=== PATIENT | female | born 1985 | race Two or more races ===

== ENCOUNTER 2020-03-09 09:27 | Inpatient (IN) | payer OTHER ==
[~2020-03-09] VITALS: Ht 157.5 cm; Wt 96.0 kg
[2020-03-09] MEDS ORDERED: BETAMETHASONE 6 MG/ML, 5ML IM ONE (09:46)
[2020-03-09] MEDS ORDERED: BETAMETHASONE 6 MG/ML, 5ML IM SCH (10:00)
[2020-03-09] MEDS ORDERED: AMPICILLIN 2 GM in SODIUM CHLORIDE 0.9% 100 ML IV ONE (10:00)
[2020-03-09 10:08] LABS: BASOPHILS # (AUTO) 0.01 x10^3/uL (0-0.1); BASOPHILS % (AUTO) 0 % (0-1); EOSINOPHILS # (AUTO) 0.09 x10^3/uL (0-0.4); EOSINOPHILS % (AUTO) 1 % (1-7); LYMPHOCYTES # (AUTO) 2.22 x10^3/uL (1-3.4); LYMPHOCYTES % (AUTO) 20 % (22-44); MD NO; MEAN CORPUSCULAR HEMOGLOBIN 28.1 pg (27.0-34.8); MEAN CORPUSCULAR HGB CONC 32.9 g/dL (32.4-35.8); MEAN CORPUSCULAR VOLUME 85.2 fL (80-100); MEAN PLATELET VOLUME 8.1 fL (7.4-10.4); MONOCYTES # (AUTO) 0.59 x10^3/uL (0.2-0.8); MONOCYTES % (AUTO) 5 % (2-9); NEUTROPHILS # (AUTO) 8.12 x10^3/uL (1.8-6.8); NEUTROPHILS % (AUTO) 74 % (42-75); PLATELET COUNT 320 x10^3/uL (130-400); RED BLOOD COUNT 4.25 x10^6/uL (3.82-5.3); RED CELL DISTRIBUTION WIDTH 13.6 % (9.6-15.2)
[2020-03-09 10:18] LABS: ALANINE AMINOTRANSFERASE 15 U/L (12-78); ANION GAP 8 mmol/L (5-15); CALCIUM 9.5 mg/dL (8.5-10.1); CHLORIDE 110 mmol/L (98-107)
[2020-03-09 10:21] LABS: ALKALINE PHOSPHATASE 70 U/L (45-117); BILIRUBIN,TOTAL 0.5 mg/dL (0.2-1.0); TOTAL PROTEIN 7.3 g/dL (6.4-8.2)
[2020-03-09] MEDS ORDERED: MAGNESIUM SULF. PMX 20GM/500ML 500 ML IV ONE ×2 (12:55→20:14)
[2020-03-09] MEDS: MAGNESIUM SULF. PMX 20GM/500ML 500 ML IV SCH ×2 (12:56→20:19)
[2020-03-09] MEDS ORDERED: MAGNESIUM SULFATE PMX 4GM/100M 100 ML IVPB ONE (13:00)
[2020-03-09] MEDS ORDERED: ONDANSETRON 2MG/ML, 2ML IVPush PRN (13:30)
[2020-03-09] MEDS ORDERED: DOCUSATE 100 MG CAPSULE PO PRN (13:30)
[2020-03-09] MEDS: AMPICILLIN 1 GM in SODIUM CHLORIDE 0.9% 100 ML IV SCH ×3 (14:05→21:06)
[2020-03-09 20:11] VITALS: BP 119/74
[2020-03-10] MEDS: AMPICILLIN 1 GM in SODIUM CHLORIDE 0.9% 100 ML IV SCH ×6 (00:49→21:21)
[2020-03-10] MEDS ORDERED: MAGNESIUM SULF. PMX 20GM/500ML 500 ML IV ONE ×3 (04:34→22:54)
[2020-03-10] MEDS: MAGNESIUM SULF. PMX 20GM/500ML 500 ML IV SCH ×4 (04:36→22:57)
[2020-03-10 09:00] VITALS: BP 122/70
[2020-03-10] MEDS ORDERED: PRENATAL VIT/IRON/FA 1 EACH TABLET ONE (10:26)
[2020-03-10] MEDS ORDERED: DOCUSATE 100 MG CAPSULE ONE ×2 (10:26→21:19)
[2020-03-10] MEDS: PRENATAL VIT/IRON/FA 1 EACH TABLET PO SCH (10:39)
[2020-03-10] MEDS: BETAMETHASONE 6 MG/ML, 5ML IM SCH ×2 (10:39→19:05)
[2020-03-10] MEDS: LACTATED RINGERS 1,000 ML IV PRN (10:47)
[2020-03-10 21:00] VITALS: BP 122/67
[2020-03-10] MEDS: VITAMIN D3 HOMEMEDPO SCH (21:21)
[2020-03-10] MEDS: DOCUSATE 100 MG CAPSULE PO SCH (21:21)
[2020-03-10 23:05] VITALS: BP 115/54
[2020-03-11] MEDS ORDERED: DOCUSATE 100 MG CAPSULE ONE ×3 (01:33→21:17)
[2020-03-11] MEDS: AMPICILLIN 1 GM in SODIUM CHLORIDE 0.9% 100 ML IV SCH ×5 (01:35→21:21)
[2020-03-11 02:51] VITALS: BP 106/57
[2020-03-11] MEDS: LACTATED RINGERS 1,000 ML IV PRN ×2 (05:43→23:32)
[2020-03-11] MEDS ORDERED: MAGNESIUM SULF. PMX 20GM/500ML 500 ML IV ONE ×3 (06:08→23:30)
[2020-03-11] MEDS: MAGNESIUM SULF. PMX 20GM/500ML 500 ML IV SCH ×3 (06:11→23:39)
[2020-03-11] MEDS ORDERED: PRENATAL VIT/IRON/FA 1 EACH TABLET ONE (08:11)
[2020-03-11] MEDS: PRENATAL VIT/IRON/FA 1 EACH TABLET PO SCH (08:13)
[2020-03-11] MEDS: DOCUSATE 100 MG CAPSULE PO SCH ×2 (08:13→21:21)
[2020-03-11 08:15] VITALS: BP 118/66
[2020-03-11] MEDS ORDERED: CHOLECALCIFEROL 400 UNITS TABLET PO SCH (09:00)
[2020-03-11] MEDS: VITAMIN D3 HOMEMEDPO SCH (09:00)
[2020-03-12] MEDS: AMPICILLIN 1 GM in SODIUM CHLORIDE 0.9% 100 ML IV SCH ×3 (00:56→10:00)
[2020-03-12] MEDS ORDERED: MAGNESIUM SULF. PMX 20GM/500ML 500 ML IV ONE (07:32)
[2020-03-12] MEDS ORDERED: DOCUSATE 100 MG CAPSULE ONE (07:37)
[2020-03-12] MEDS ORDERED: PRENATAL VIT/IRON/FA 1 EACH TABLET ONE (07:37)
[2020-03-12] MEDS: MAGNESIUM SULF. PMX 20GM/500ML 500 ML IV SCH (08:39)
[2020-03-12] MEDS: VITAMIN D3 HOMEMEDPO SCH (09:00)
[2020-03-12] MEDS ORDERED: GLYCERIN ADULT SUPP PR PRN (10:00)
[2020-03-12] MEDS: SODIUM CHLORIDE FLUSH 10ML SYR IVF SCH ×2 (10:00→20:28)
[2020-03-12 11:00] VITALS: BP 108/58
[2020-03-12] MEDS: PRENATAL VIT/IRON/FA 1 EACH TABLET PO SCH (12:15)
[2020-03-12] MEDS: DOCUSATE 100 MG CAPSULE PO SCH (12:15)
[2020-03-12 19:48] VITALS: BP 115/59
[2020-03-12] MEDS ORDERED: MAGNESIUM SULF. PMX 20GM/500ML 500 ML IV SCH (20:56)
[2020-03-12] MEDS ORDERED: MAGNESIUM SULFATE PMX 4GM/100M 100 ML IVPB ONE (21:00)
[2020-03-12] MEDS ORDERED: METOCLOPRAMIDE 5 MG/ML, 2ML ONE (21:09)
[2020-03-12] MEDS ORDERED: NEWBORN KIT ONE (21:11)
[2020-03-12 21:16] LABS: BASOPHILS # (AUTO) 0.07 x10^3/uL (0-0.1); BASOPHILS % (AUTO) 1 % (0-1); EOSINOPHILS # (AUTO) 0.18 x10^3/uL (0-0.4); EOSINOPHILS % (AUTO) 1 % (1-7); LYMPHOCYTES # (AUTO) 2.67 x10^3/uL (1-3.4); LYMPHOCYTES % (AUTO) 21 % (22-44); MD NO; MEAN CORPUSCULAR HEMOGLOBIN 28.4 pg (27.0-34.8); MEAN CORPUSCULAR HGB CONC 33.6 g/dL (32.4-35.8); MEAN CORPUSCULAR VOLUME 84.5 fL (80-100); MEAN PLATELET VOLUME 8.4 fL (7.4-10.4); MONOCYTES # (AUTO) 1.08 x10^3/uL (0.2-0.8); MONOCYTES % (AUTO) 9 % (2-9); NEUTROPHILS # (AUTO) 8.76 x10^3/uL (1.8-6.8); NEUTROPHILS % (AUTO) 69 % (42-75); PLATELET COUNT 350 x10^3/uL (130-400); RED BLOOD COUNT 4.44 x10^6/uL (3.82-5.3); RED CELL DISTRIBUTION WIDTH 13.7 % (9.6-15.2)
[2020-03-12] MEDS ORDERED: CEFAZOLIN 1,000 MG ONE (21:16)
[2020-03-12] MEDS ORDERED: OXYTOCIN 10 UNITS/ML, 1ML ONE (21:16)
[2020-03-12] MEDS ORDERED: ONDANSETRON 2MG/ML, 2ML ONE (21:16)
[2020-03-12] MEDS ORDERED: HYDROmorphone 2 MG/ML, 1ML ONE (21:17)
[2020-03-12] MEDS ORDERED: FENTANYL PF 100 MCG/2ML ONE (21:17)
[2020-03-12] MEDS ORDERED: LACTATED RINGERS 1,000 ML IVBOLUS ONE (21:30)
[2020-03-12] MEDS ORDERED: SODIUM CITRATE/CITRIC ACID 30 ML UDC PO ONE (21:30)
[2020-03-12] MEDS ORDERED: MAGNESIUM SULF. PMX 20GM/500ML 500 ML IV PRN (21:30)
[2020-03-12] MEDS ORDERED: METOCLOPRAMIDE 5 MG/ML, 2ML IV ONE (21:30)
[2020-03-12] MEDS ORDERED: AZITHROMYCIN 500 MG in SODIUM CHLORIDE 0.9% 250 ML IV ONE (21:30)
[2020-03-12] MEDS ORDERED: PROPOFOL 10 MG/ML, 20ML ONE (22:09)
[2020-03-12] MEDS: KETOROLAC 30 MG/1 ML IV SCH (22:30)
[2020-03-12] MEDS ORDERED: LACTATED RINGERS 1,000 ML IV SCH ×2 (22:38)
[2020-03-12] MEDS ORDERED: OXYTOCIN 30U/ 0.9% NaCL 500ML 500 ML IV SCH (22:38)
[2020-03-12] MEDS ORDERED: OXYTOCIN 30U/ 0.9% NaCL 500ML 500 ML ONE (22:44)
[2020-03-12] MEDS: IBUPROFEN 600 MG TABLET PO SCH (23:00)
[2020-03-12] MEDS ORDERED: OXYcodone IR 5MG TABLET PO PRN (23:00)
[2020-03-12] MEDS ORDERED: CALCIUM CARBONATE 500 MG TAB.CHEW PO PRN (23:00)
[2020-03-12] MEDS ORDERED: ONDANSETRON 2MG/ML, 2ML IV PRN (23:00)
[2020-03-12] MEDS ORDERED: OXYcodone 5 MG/5 ML ORAL.SOL UDC ONE (23:10)
[2020-03-12] MEDS ORDERED: OXYcodone 5 MG/5 ML ORAL.SOL UDC PO PRN (23:30)
[2020-03-13 00:50] VITALS: BP 124/73
[2020-03-13] MEDS: ACETAMINOPHEN 325 MG TABLET PO SCH ×4 (03:06→21:07)
[2020-03-13] MEDS: OXYcodone IR 5MG TABLET PO PRN ×5 (03:07→20:01)
[2020-03-13 03:15] VITALS: BP 113/68
[2020-03-13] MEDS: IBUPROFEN 600 MG TABLET PO SCH ×4 (05:00→23:00)
[2020-03-13] MEDS: KETOROLAC 30 MG/1 ML IV SCH ×4 (05:21→22:53)
[2020-03-13 06:22] LABS: BASOPHILS # (AUTO) 0.04 x10^3/uL (0-0.1); BASOPHILS % (AUTO) 0 % (0-1); EOSINOPHILS # (AUTO) 0.19 x10^3/uL (0-0.4); EOSINOPHILS % (AUTO) 1 % (1-7); LYMPHOCYTES % (AUTO) 13 % (22-44); MD NO; MEAN CORPUSCULAR HEMOGLOBIN 28.6 pg (27.0-34.8); MEAN CORPUSCULAR HGB CONC 33.8 g/dL (32.4-35.8); MEAN CORPUSCULAR VOLUME 84.4 fL (80-100); MEAN PLATELET VOLUME 8.6 fL (7.4-10.4); MONOCYTES # (AUTO) 0.84 x10^3/uL (0.2-0.8); MONOCYTES % (AUTO) 6 % (2-9); NEUTROPHILS # (AUTO) 10.31 x10^3/uL (1.8-6.8); NEUTROPHILS % (AUTO) 79 % (42-75); PLATELET COUNT 296 x10^3/uL (130-400); RED BLOOD COUNT 3.62 x10^6/uL (3.82-5.3); RED CELL DISTRIBUTION WIDTH 13.9 % (9.6-15.2)
[2020-03-13] MEDS: DOCUSATE 100 MG CAPSULE PO PRN ×2 (07:26→20:00)
[2020-03-13] MEDS: SIMETHICONE 80 MG CHEW TAB PO PRN ×2 (07:26→20:00)
[2020-03-13 07:29] VITALS: BP 111/72
[2020-03-13] MEDS: PRENATAL VIT/IRON/FA 1 EACH TABLET PO SCH (09:05)
[2020-03-13 12:10] VITALS: BP 112/74
[2020-03-13 16:10] VITALS: BP 113/76
[2020-03-13] MEDS: FERROUS SULFATE 325 MG TABLET PO SCH (16:56)
[2020-03-13 20:00] VITALS: BP 119/77
[2020-03-14 00:08] VITALS: BP 118/78
[2020-03-14] MEDS: OXYcodone IR 5MG TABLET PO PRN ×6 (00:26→21:12)
[2020-03-14] MEDS: ACETAMINOPHEN 325 MG TABLET PO SCH ×4 (03:09→21:12)
[2020-03-14] MEDS: IBUPROFEN 600 MG TABLET PO SCH ×4 (05:00→23:29)
[2020-03-14] MEDS: KETOROLAC 30 MG/1 ML IV SCH ×3 (05:06→16:47)
[2020-03-14] MEDS: SIMETHICONE 80 MG CHEW TAB PO PRN ×2 (05:12→12:51)
[2020-03-14] MEDS: FERROUS SULFATE 325 MG TABLET PO SCH ×2 (08:44→16:47)
[2020-03-14] MEDS: PRENATAL VIT/IRON/FA 1 EACH TABLET PO SCH (08:45)
[2020-03-14] MEDS: DOCUSATE 100 MG CAPSULE PO PRN ×2 (08:45→21:12)
[2020-03-14 08:47] VITALS: BP 128/86
[2020-03-14] MEDS ORDERED: SERTRALINE 50MG TABLET PO SCH (09:00)
[2020-03-14 20:00] VITALS: BP 131/84
[2020-03-15] MEDS: ACETAMINOPHEN 325 MG TABLET PO SCH ×4 (03:24→21:53)
[2020-03-15] MEDS: OXYcodone IR 5MG TABLET PO PRN ×5 (03:27→21:53)
[2020-03-15] MEDS: IBUPROFEN 600 MG TABLET PO SCH ×4 (05:49→23:53)
[2020-03-15] MEDS ORDERED: BISACODYL 10 MG SUPP PR PRN (07:00)
[2020-03-15] MEDS: SIMETHICONE 80 MG CHEW TAB PO PRN (07:58)
[2020-03-15] MEDS: FERROUS SULFATE 325 MG TABLET PO SCH ×2 (07:58→17:38)
[2020-03-15] MEDS: DOCUSATE 100 MG CAPSULE PO PRN ×2 (07:58→21:53)
[2020-03-15 08:25] VITALS: BP 115/74
[2020-03-15] MEDS: PRENATAL VIT/IRON/FA 1 EACH TABLET PO SCH (09:46)
[2020-03-15 20:00] VITALS: BP 117/75
[2020-03-15] MEDS: SERTRALINE 50MG TABLET PO SCH (21:04)
[2020-03-16] MEDS: OXYcodone IR 5MG TABLET PO PRN ×5 (02:18→19:51)
[2020-03-16] MEDS: ACETAMINOPHEN 325 MG TABLET PO SCH ×3 (04:05→14:42)
[2020-03-16] MEDS: IBUPROFEN 600 MG TABLET PO SCH ×3 (06:17→19:50)
[2020-03-16 07:15] VITALS: BP 121/74
[2020-03-16] MEDS ORDERED: OXYC-302 PO (07:31)
[2020-03-16] MEDS ORDERED: IBUP-1222 PO (07:31)
[2020-03-16] MEDS ORDERED: SERT50TA PO (07:31)
[2020-03-16] MEDS: PRENATAL VIT/IRON/FA 1 EACH TABLET PO SCH (10:46)
[2020-03-16] MEDS: FERROUS SULFATE 325 MG TABLET PO SCH ×2 (10:47→19:50)
[2020-03-16] MEDS: DOCUSATE 100 MG CAPSULE PO PRN (12:05)
[2020-03-16] MEDS ORDERED: DIPH,PERTUSS(ACELL),TET VAC/PF NC IM-VACC ONE ×2 (19:42→20:00)
[2020-03-16] MEDS: SERTRALINE 50MG TABLET PO SCH (20:02)
== END 2020-03-16 22:13 | disposition home or self-care (01) | DRG 786 ==
LOC: LDIP 09:27 → 2NW 03-13 00:35
PROVIDERS: ADMIT Obstetrics & Gynecology; ATTEND Obstetrics & Gynecology
PROC: 10D00Z1 Extraction of Products of Conception, Low, Open Approach (ICD-10-PCS; principal; 2020-03-12)
DX: O60.14X0 Preterm labor third trimester with preterm delivery third trimester, not applicable or unspecified (principal); O41.1230 Chorioamnionitis, third trimester, not applicable or unspecified; Z3A.28 28 weeks gestation of pregnancy; O99.345 Other mental disorders complicating the puerperium; Z37.0 Single live birth; O32.8XX0 Maternal care for other malpresentation of fetus, not applicable or unspecified; F53.0 Postpartum depression; K59.00 Constipation, unspecified; Z20.828 Contact with and (suspected) exposure to other viral communicable diseases
CPT/HCPCS: 36415; 76805; 80053; 83735; 85025; 86592; 86850; 86900; 87081; 87635; 90715; G0378; J0290; J0456; J0690; J0702; J1170; J1885; J2405; J2704; J3010; J2590; J2765; J3475; J7050; J7120

== ENCOUNTER 2020-03-17 03:25 | Emergency (ER) | payer OTHER ==
[~2020-03-17] VITALS: Ht 162.6 cm; Wt 97.9 kg
[~2020-03-17 03:25] MED LIST: IBUP-1222 PO; OXYC-302 PO; SERT50TA PO
[2020-03-17] MEDS ORDERED: DIPHENHYDRAMINE 50 MG/ML, 1ML ONE (04:06)
[2020-03-17] MEDS ORDERED: methylPREDNISolone SOD SUCC 125 MG/2 ML ONE (04:06)
[2020-03-17] MEDS ORDERED: FAMOTIDINE 20 MG/2 ML ONE (04:06)
[2020-03-17] MEDS ORDERED: FAMOTIDINE 20 MG/2 ML IVPush ONE (04:30)
[2020-03-17] MEDS ORDERED: methylPREDNISolone SOD SUCC 125 MG/2 ML IVPush ONE (04:30)
[2020-03-17] MEDS ORDERED: DIPHENHYDRAMINE 50 MG/ML, 1ML IVPush ONE (04:30)
[2020-03-17 04:51] VITALS: BP 145/75
== END 2020-03-17 05:13 | disposition home or self-care (01) ==
LOC: ED 04:05
DX: T78.3XXA Angioneurotic edema, initial encounter (principal); F41.1 Generalized anxiety disorder; R22.0 Localized swelling, mass and lump, head; X58.XXXA Exposure to other specified factors, initial encounter; Y93.89 Activity, other specified; Y92.89 Other specified places as the place of occurrence of the external cause; Y99.8 Other external cause status
CPT/HCPCS: 96374; 96375; 99284; J1200; J2930; J3490

== ENCOUNTER 2020-03-24 13:28 | Emergency (ER) | payer OTHER ==
[~2020-03-24] VITALS: Ht 162.6 cm; Wt 89.5 kg
[2020-03-24 13:31] VITALS: BP 137/87
--- NOTE | 2020-03-24 14:13 | NUR ---
was dc w sertraline rx from [facility] 2 wks ago still feels depressed denies SI has therapy appt thursday accomp by sts had same reaction w first child 13 years ago plan for labs call bassem in reach. as
[2020-03-24 14:41] LABS: BASOPHILS # (AUTO) 0.05 x10^3/uL (0-0.1); BASOPHILS % (AUTO) 1 % (0-1); EOSINOPHILS % (AUTO) 2 % (1-7); LYMPHOCYTES # (AUTO) 2.19 x10^3/uL (1-3.4); LYMPHOCYTES % (AUTO) 24 % (22-44); MD NO; MEAN CORPUSCULAR HEMOGLOBIN 27.5 pg (27.0-34.8); MEAN CORPUSCULAR VOLUME 85.8 fL (80-100); MEAN PLATELET VOLUME 7.6 fL (7.4-10.4); MONOCYTES # (AUTO) 0.46 x10^3/uL (0.2-0.8); MONOCYTES % (AUTO) 5 % (2-9); NEUTROPHILS # (AUTO) 6.18 x10^3/uL (1.8-6.8); NEUTROPHILS % (AUTO) 68 % (42-75); PLATELET COUNT 503 x10^3/uL (130-400); RED BLOOD COUNT 4.32 x10^6/uL (3.82-5.3); RED CELL DISTRIBUTION WIDTH 14.6 % (9.6-15.2)
[2020-03-24 14:44] LABS: ALBUMIN 3.5 g/dL (3.4-5.0); ANION GAP 9 mmol/L (5-15); CALCIUM 8.7 mg/dL (8.5-10.1); CHLORIDE 111 mmol/L (98-107); CREATININE 0.55 mg/dL (0.55-1.02)
[2020-03-24 14:54] LABS: T4 (THYROXINE) 13.3 mcg/dL (4.8-13.9)
[2020-03-24] MEDS ORDERED: QUETIAPINE 25MG TABLET PO ONE (15:00)
[2020-03-24] MEDS ORDERED: QUETIAPINE 25MG TABLET ONE ×2 (15:01→15:03)
--- NOTE | 2020-03-24 15:34 | NUR ---
pt pumping, l/d rn set up breast pump. psychiatry to return for eval. as
== END 2020-03-24 17:00 | disposition home or self-care (01) ==
LOC: ED 15:33
DX: F32.9 Major depressive disorder, single episode, unspecified (principal); F29 Unspecified psychosis not due to a substance or known physiological condition; F41.9 Anxiety disorder, unspecified
CPT/HCPCS: 36415; 80048; 82040; 84436; 84443; 85025; 99283

== ENCOUNTER 2020-03-30 19:48 | Emergency (ER) | payer OTHER ==
[~2020-03-30] VITALS: Ht 162.6 cm; Wt 89.0 kg
--- NOTE | 2020-03-30 20:03 | NUR ---
PT PROVIDED URINE CUP AND EDUCATED ON CLEAN CATCH
--- NOTE | 2020-03-30 21:59 | NUR ---
URINE SENT TO LAB
--- NOTE | 2020-03-30 21:59 | NUR ---
VITALS RECHECKED, PT AWAITING ROOM AVAILABILITY
[2020-03-30 22:25] LABS: HCG UR SG 1.035 (1.003-1.030); MICROSCOPIC AUTO
--- NOTE | 2020-03-30 22:33 | NUR ---
34F. LLQ Abd pain starting last night. Pt was visiting baby in NICU. Delivered 03/12/20. 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 Nauseous. Denies constipation/diarrhea/vomitting. Pt reports loss of appetite d/t worsening abd pain with eating.
--- NOTE | 2020-03-30 22:39 | NUR ---
34/F. LLQ abd pain starting last night. Deliver 03/12. 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 Hx of diverticulitis, pt reports similar pain. Denies diarrhea/vomitting/constipation. Nausea. Worsening pain with eating.
[2020-03-30 22:53] LABS: BASOPHILS # (AUTO) 0.13 x10^3/uL (0-0.1); BASOPHILS % (AUTO) 1 % (0-1); EOSINOPHILS # (AUTO) 0.42 x10^3/uL (0-0.4); EOSINOPHILS % (AUTO) 3 % (1-7); LYMPHOCYTES # (AUTO) 2.83 x10^3/uL (1-3.4); LYMPHOCYTES % (AUTO) 23 % (22-44); MD NO; MEAN CORPUSCULAR HGB CONC 32.7 g/dL (32.4-35.8); MEAN PLATELET VOLUME 8.3 fL (7.4-10.4); MONOCYTES # (AUTO) 0.64 x10^3/uL (0.2-0.8); MONOCYTES % (AUTO) 5 % (2-9); NEUTROPHILS % (AUTO) 67 % (42-75); PLATELET COUNT 387 x10^3/uL (130-400); RED BLOOD COUNT 4.28 x10^6/uL (3.82-5.3); RED CELL DISTRIBUTION WIDTH 14.2 % (9.6-15.2)
[2020-03-30] MEDS ORDERED: ACETAMINOPHEN 325 MG TABLET PO ONE (23:00)
[2020-03-30 23:21] LABS: ALBUMIN 3.5 g/dL (3.4-5.0); CALCIUM 8.5 mg/dL (8.5-10.1)
[2020-03-30] MEDS ORDERED: ACETAMINOPHEN 325 MG TABLET ONE (23:27)
[2020-03-30 23:50] LABS: MICROSCOPIC AUTO
[2020-03-30 23:52] LABS: ALANINE AMINOTRANSFERASE 109 U/L (12-78); ALKALINE PHOSPHATASE 92 U/L (45-117); ANION GAP 6 mmol/L (5-15); BILIRUBIN,TOTAL 0.7 mg/dL (0.2-1.0); CHLORIDE 111 mmol/L (98-107); CREATININE 0.72 mg/dL (0.55-1.02); TOTAL PROTEIN 7.8 g/dL (6.4-8.2)
[2020-03-31] MEDS ORDERED: OMNIPAQUE 350 MG/ML, 100ML BOTTLE ONE (00:47)
[2020-03-31 00:59] VITALS: BP 117/69
--- NOTE | 2020-03-31 01:01 | NUR ---
TASK RN: PT SITTING UP IN DIANA HERRERA NOTED. SO AT BEDSIDE. PT REPORTS SIGNIFICANT IMPROVMENT IN LISA BUT CONTINUES TO EXPERIENCE INTERMITTENT ABD PAIN, 9/10 AT WORST. DENIES NEED FOR ADDITIONAL PAIN/NAUSEA MEDICATIONS.
== END 2020-03-31 02:36 | disposition home or self-care (01) ==
LOC: ED 23:30
DX: K57.32 Diverticulitis of large intestine without perforation or abscess without bleeding (principal); R10.32 Left lower quadrant pain
CPT/HCPCS: 36415; 74177; 80053; 81001; 81025; 84703; 85025; 87086; 99285; Q9967; 87077; 87186

== ENCOUNTER 2020-04-05 16:21 | Inpatient (IN) | payer OTHER ==
[~2020-04-05] VITALS: Ht 162.6 cm; Wt 85.1 kg
[2020-04-05] MEDS: METRONIDAZOLE PMX 500MG/100ML 100 ML IV SCH ×3 (03:30→19:30)
--- NOTE | 2020-04-05 16:52 | NUR ---
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
[2020-04-05] MEDS ORDERED: MORPHINE SULFATE 4 MG/ML, 1ML IVPush PRN (17:30)
[2020-04-05] MEDS ORDERED: SODIUM CHLORIDE FLUSH 10ML SYR IVF ONE (17:30)
[2020-04-05] MEDS ORDERED: ONDANSETRON 2MG/ML, 2ML ONE (17:43)
[2020-04-05] MEDS ORDERED: MORPHINE SULFATE 4 MG/ML, 1ML ONE (17:43)
[2020-04-05 17:52] LABS: BASOPHILS # (AUTO) 0.04 x10^3/uL (0-0.1); BASOPHILS % (AUTO) 0 % (0-1); EOSINOPHILS # (AUTO) 0.35 x10^3/uL (0-0.4); EOSINOPHILS % (AUTO) 3 % (1-7); LYMPHOCYTES # (AUTO) 2.76 x10^3/uL (1-3.4); LYMPHOCYTES % (AUTO) 27 % (22-44); MD NO; MEAN CORPUSCULAR HEMOGLOBIN 27.4 pg (27.0-34.8); MEAN CORPUSCULAR HGB CONC 32.2 g/dL (32.4-35.8); MONOCYTES # (AUTO) 0.69 x10^3/uL (0.2-0.8); MONOCYTES % (AUTO) 7 % (2-9); NEUTROPHILS # (AUTO) 6.39 x10^3/uL (1.8-6.8); NEUTROPHILS % (AUTO) 63 % (42-75); PLATELET COUNT 454 x10^3/uL (130-400); RED CELL DISTRIBUTION WIDTH 13.8 % (9.6-15.2)
[2020-04-05 17:59] LABS: MICROSCOPIC AUTO
[2020-04-05] MEDS ORDERED: ONDANSETRON 2MG/ML, 2ML IVPush ONE (18:00)
[2020-04-05] MEDS ORDERED: SODIUM CHLORIDE 0.9% 1,000ML IVBOLUS ONE (18:00)
--- NOTE | 2020-04-05 18:02 | NUR ---
PT WITH LUQ/LLQ ABD PAIN DESCRIBED SHARP AND CRAMPING, RATED 9/10. PT 3 WKS , BABY DELIVERED AT 28 WEEKS AND IN NICU. PT RECENTLY DX WITH DIVERTICULITIS, ABX PRESCRIBED WITH SOME RELIEF UNTIL YESTERDAY WHEN PAIN RETURNED AND INCREASED. DIARRHEA SINCE YESTERDAY, PT STATES BLACK IN COLOR. PT STATES ALSO RECENT UTI. PT ALSO REPORTS OF MILD VAG BLEEDING D/T . IV PLACED, LABS DRAWN WITH START, URINE COLLECTED/SENT TO LAB. VSS/UPDATED IN COMPUTER. PT MEDICATED PER ERP ORDER FOR NAUSEA AND L QUADRANT PAIN RATED 9/10. CALL LIGHT WITHIN REACH, WARM BLANKET AND PADS/MATERNITY UNDERPANTS PROVIDED.
[2020-04-05 18:04] LABS: ALANINE AMINOTRANSFERASE 90 U/L (12-78); ANION GAP 5 mmol/L (5-15); CALCIUM 9.3 mg/dL (8.5-10.1); CHLORIDE 108 mmol/L (98-107); CREATININE 0.71 mg/dL (0.55-1.02)
[2020-04-05 18:07] LABS: ALKALINE PHOSPHATASE 112 U/L (45-117); BILIRUBIN,TOTAL 0.7 mg/dL (0.2-1.0); TOTAL PROTEIN 8.8 g/dL (6.4-8.2)
[2020-04-05] MEDS ORDERED: OMNIPAQUE 350 MG/ML, 100ML BOTTLE ONE (18:53)
--- NOTE | 2020-04-05 18:59 | NUR ---
PT STATES PAIN DECREASED TO 6/[address] AT [address]. REPORT TO JOSE, TRANSFER OF CARE AT THIS TIME.
[2020-04-05] MEDS ORDERED: CIPROFLOXACIN/PMX 400MG/200ML 200 ML ONE (19:29)
[2020-04-05] MEDS ORDERED: CIPROFLOXACIN/PMX 400MG/200ML 200 ML IV ONE (19:30)
[2020-04-05] MEDS ORDERED: METRONIDAZOLE PMX 500MG/100ML 100 ML IV ONE (19:30)
--- NOTE | 2020-04-05 19:40 | NUR ---
Hospitalist at bedside
[2020-04-05] MEDS ORDERED: CEFTRIAXONE PMX 1GM/50ML 50 ML ONE (19:46)
[2020-04-05] MEDS ORDERED: ONDANSETRON ODT 4 MG PO PRN (20:00)
[2020-04-05] MEDS: CEFTRIAXONE PMX 1GM/50ML 50 ML IV SCH (20:00)
[2020-04-05] MEDS ORDERED: METRONIDAZOLE PMX 500MG/100ML 100 ML ONE (21:08)
[2020-04-05] MEDS: IBUPROFEN 600 MG TABLET PO PRN (22:22)
[2020-04-05] MEDS: SODIUM CHLORIDE FLUSH 10ML SYR IVF SCH (23:30)
[2020-04-05] MEDS: QUETIAPINE 25MG TABLET PO SCH (23:32)
[2020-04-06 01:38] VITALS: BP 96/61
[2020-04-06] MEDS: METRONIDAZOLE PMX 500MG/100ML 100 ML IV SCH ×3 (03:29→20:00)
[2020-04-06 05:15] LABS: ANION GAP 6 mmol/L (5-15); CALCIUM 8.4 mg/dL (8.5-10.1); CHLORIDE 112 mmol/L (98-107); CREATININE 0.52 mg/dL (0.55-1.02)
[2020-04-06 05:56] LABS: BASOPHILS # (AUTO) 0.03 x10^3/uL (0-0.1); BASOPHILS % (AUTO) 0 % (0-1); EOSINOPHILS # (AUTO) 0.39 x10^3/uL (0-0.4); EOSINOPHILS % (AUTO) 5 % (1-7); LYMPHOCYTES # (AUTO) 2.44 x10^3/uL (1-3.4); LYMPHOCYTES % (AUTO) 33 % (22-44); MD NO; MEAN CORPUSCULAR HEMOGLOBIN 27.7 pg (27.0-34.8); MEAN CORPUSCULAR HGB CONC 32.7 g/dL (32.4-35.8); MEAN PLATELET VOLUME 8.2 fL (7.4-10.4); MONOCYTES # (AUTO) 0.52 x10^3/uL (0.2-0.8); MONOCYTES % (AUTO) 7 % (2-9); NEUTROPHILS # (AUTO) 4.06 x10^3/uL (1.8-6.8); NEUTROPHILS % (AUTO) 55 % (42-75); PLATELET COUNT 345 x10^3/uL (130-400); RED BLOOD COUNT 3.91 x10^6/uL (3.82-5.3); RED CELL DISTRIBUTION WIDTH 13.8 % (9.6-15.2)
[2020-04-06 07:22] VITALS: BP 98/61
[2020-04-06] MEDS: SODIUM CHLORIDE FLUSH 10ML SYR IVF SCH ×2 (08:24→21:48)
[2020-04-06] MEDS: FLUOXETINE 10 MG CAP PO SCH (08:24)
[2020-04-06] MEDS: IBUPROFEN 600 MG TABLET PO PRN ×2 (08:25→17:07)
[2020-04-06] MEDS ORDERED: SERTRALINE 50MG TABLET PO SCH (09:00)
[2020-04-06 12:55] VITALS: BP 100/64
[2020-04-06] MEDS ORDERED: LORazepam 0.5MG TABLET PO ONE (18:00)
[2020-04-06 18:55] VITALS: BP 113/73
[2020-04-06] MEDS ORDERED: QUETIAPINE 25MG TABLET PO SCH (21:00)
[2020-04-06] MEDS: CEFTRIAXONE PMX 1GM/50ML 50 ML IV SCH (21:48)
[2020-04-06] MEDS: QUETIAPINE 25MG TABLET PO SCH (21:48)
[2020-04-07 01:03] VITALS: BP 102/69
[2020-04-07] MEDS: METRONIDAZOLE PMX 500MG/100ML 100 ML IV SCH ×3 (03:34→19:42)
[2020-04-07] MEDS: IBUPROFEN 600 MG TABLET PO PRN ×4 (03:38→21:56)
[2020-04-07 04:53] LABS: BASOPHILS # (AUTO) 0.04 x10^3/uL (0-0.1); BASOPHILS % (AUTO) 1 % (0-1); EOSINOPHILS # (AUTO) 0.52 x10^3/uL (0-0.4); EOSINOPHILS % (AUTO) 6 % (1-7); LYMPHOCYTES # (AUTO) 2.73 x10^3/uL (1-3.4); LYMPHOCYTES % (AUTO) 33 % (22-44); MD NO; MEAN CORPUSCULAR HEMOGLOBIN 27.8 pg (27.0-34.8); MEAN CORPUSCULAR HGB CONC 32.5 g/dL (32.4-35.8); MEAN PLATELET VOLUME 7.8 fL (7.4-10.4); MONOCYTES # (AUTO) 0.67 x10^3/uL (0.2-0.8); MONOCYTES % (AUTO) 8 % (2-9); NEUTROPHILS # (AUTO) 4.33 x10^3/uL (1.8-6.8); NEUTROPHILS % (AUTO) 52 % (42-75); PLATELET COUNT 362 x10^3/uL (130-400); RED CELL DISTRIBUTION WIDTH 13.9 % (9.6-15.2)
[2020-04-07 05:09] LABS: ALANINE AMINOTRANSFERASE 60 U/L (12-78); ANION GAP 5 mmol/L (5-15); CALCIUM 8.5 mg/dL (8.5-10.1); CHLORIDE 112 mmol/L (98-107); CREATININE 0.57 mg/dL (0.55-1.02)
[2020-04-07 05:12] LABS: ALKALINE PHOSPHATASE 89 U/L (45-117); BILIRUBIN,TOTAL 0.4 mg/dL (0.2-1.0); TOTAL PROTEIN 6.8 g/dL (6.4-8.2)
[2020-04-07 07:38] VITALS: BP 131/85
[2020-04-07] MEDS: CHOLECALCIFEROL 5,000u TAB PO SCH (08:20)
[2020-04-07] MEDS: FLUOXETINE 10 MG CAP PO SCH (08:20)
[2020-04-07] MEDS: LORazepam 0.5MG TABLET PO PRN ×2 (08:21→15:38)
[2020-04-07] MEDS: SODIUM CHLORIDE FLUSH 10ML SYR IVF SCH ×2 (08:21→21:22)
[2020-04-07] MEDS: PRENATAL VIT/IRON/FA 1 EACH TABLET PO SCH (08:21)
[2020-04-07 14:03] VITALS: BP 109/70
[2020-04-07 19:50] VITALS: BP 115/71
[2020-04-07] MEDS: CEFTRIAXONE PMX 1GM/50ML 50 ML IV SCH (21:18)
[2020-04-08] MEDS: LORazepam 0.5MG TABLET PO PRN ×3 (00:11→21:06)
[2020-04-08 00:21] VITALS: BP 92/60
[2020-04-08] MEDS: QUETIAPINE 25MG TABLET PO SCH ×2 (01:57→20:59)
[2020-04-08] MEDS: ACETAMINOPHEN 325 MG TABLET PO PRN ×2 (01:57→21:14)
[2020-04-08] MEDS: METRONIDAZOLE PMX 500MG/100ML 100 ML IV SCH ×3 (03:42→18:34)
[2020-04-08 04:12] LABS: ANION GAP 7 mmol/L (5-15); CALCIUM 8.3 mg/dL (8.5-10.1); CHLORIDE 112 mmol/L (98-107); CREATININE 0.58 mg/dL (0.55-1.02)
[2020-04-08 04:17] LABS: BASOPHILS # (AUTO) 0.01 x10^3/uL (0-0.1); BASOPHILS % (AUTO) 0 % (0-1); EOSINOPHILS # (AUTO) 0.62 x10^3/uL (0-0.4); EOSINOPHILS % (AUTO) 8 % (1-7); LYMPHOCYTES # (AUTO) 2.63 x10^3/uL (1-3.4); LYMPHOCYTES % (AUTO) 32 % (22-44); MD NO; MEAN CORPUSCULAR HEMOGLOBIN 27.5 pg (27.0-34.8); MEAN CORPUSCULAR HGB CONC 32.5 g/dL (32.4-35.8); MEAN PLATELET VOLUME 8.6 fL (7.4-10.4); MONOCYTES # (AUTO) 0.65 x10^3/uL (0.2-0.8); MONOCYTES % (AUTO) 8 % (2-9); NEUTROPHILS # (AUTO) 4.41 x10^3/uL (1.8-6.8); NEUTROPHILS % (AUTO) 53 % (42-75); PLATELET COUNT 372 x10^3/uL (130-400); RED BLOOD COUNT 3.94 x10^6/uL (3.82-5.3); RED CELL DISTRIBUTION WIDTH 13.9 % (9.6-15.2)
[2020-04-08] MEDS: IBUPROFEN 600 MG TABLET PO PRN (08:30)
[2020-04-08] MEDS: PRENATAL VIT/IRON/FA 1 EACH TABLET PO SCH (08:30)
[2020-04-08] MEDS: CHOLECALCIFEROL 5,000u TAB PO SCH (08:30)
[2020-04-08] MEDS: FLUOXETINE 10 MG CAP PO SCH (08:30)
[2020-04-08] MEDS: SODIUM CHLORIDE FLUSH 10ML SYR IVF SCH ×2 (08:31→20:59)
[2020-04-08 09:30] VITALS: BP 112/74
[2020-04-08] MEDS: OXYcodone/APAP 5/325MG TABLET PO PRN (09:33)
[2020-04-08] MEDS: SUCRALFATE 1 GM/10 ML UDC PO SCH ×3 (10:50→20:59)
[2020-04-08] MEDS: PANTOPRAZOLE 40MG TABLET PO SCH (10:50)
[2020-04-08 15:59] VITALS: BP 97/66
[2020-04-08 19:21] VITALS: BP 112/72
[2020-04-08] MEDS: CEFTRIAXONE PMX 1GM/50ML 50 ML IV SCH (20:59)
[2020-04-09 01:21] VITALS: BP 119/75
[2020-04-09] MEDS: METRONIDAZOLE PMX 500MG/100ML 100 ML IV SCH ×3 (03:14→18:41)
[2020-04-09] MEDS: OXYcodone/APAP 5/325MG TABLET PO PRN ×2 (03:20→09:33)
[2020-04-09] MEDS: PANTOPRAZOLE 40MG TABLET PO SCH (05:19)
[2020-04-09 05:38] LABS: BASOPHILS % (AUTO) 1 % (0-1); EOSINOPHILS % (AUTO) 8 % (1-7); LYMPHOCYTES % (AUTO) 43 % (22-44); MEAN CORPUSCULAR HEMOGLOBIN 27.3 pg (27.0-34.8); MEAN CORPUSCULAR HGB CONC 32.2 g/dL (32.4-35.8); MEAN PLATELET VOLUME 7.7 fL (7.4-10.4); MONOCYTES % (AUTO) 8 % (2-9); NEUTROPHILS % (AUTO) 41 % (42-75); PLATELET COUNT 399 x10^3/uL (130-400); RED BLOOD COUNT 4.11 x10^6/uL (3.82-5.3); RED CELL DISTRIBUTION WIDTH 13.7 % (9.6-15.2)
[2020-04-09 05:39] LABS: ALANINE AMINOTRANSFERASE 52 U/L (12-78); ANION GAP 6 mmol/L (5-15); CALCIUM 8.7 mg/dL (8.5-10.1); CHLORIDE 112 mmol/L (98-107); CREATININE 0.69 mg/dL (0.55-1.02)
[2020-04-09 05:41] LABS: ALKALINE PHOSPHATASE 80 U/L (45-117); BILIRUBIN,TOTAL 0.3 mg/dL (0.2-1.0); TOTAL PROTEIN 6.7 g/dL (6.4-8.2)
[2020-04-09 05:55] LABS: MD NO
[2020-04-09] MEDS: ACETAMINOPHEN 325 MG TABLET PO PRN (06:08)
[2020-04-09] MEDS: SUCRALFATE 1 GM/10 ML UDC PO SCH ×4 (07:10→20:47)
[2020-04-09 07:20] VITALS: BP 137/64
[2020-04-09] MEDS: PRENATAL VIT/IRON/FA 1 EACH TABLET PO SCH (09:32)
[2020-04-09] MEDS: FLUOXETINE 10 MG CAP PO SCH (09:32)
[2020-04-09] MEDS: SODIUM CHLORIDE FLUSH 10ML SYR IVF SCH ×2 (09:32→20:47)
[2020-04-09] MEDS: CHOLECALCIFEROL 5,000u TAB PO SCH (09:32)
[2020-04-09] MEDS: LORazepam 0.5MG TABLET PO PRN ×2 (09:48→19:58)
[2020-04-09 14:42] VITALS: BP 126/81
[2020-04-09 18:45] VITALS: BP 115/76
[2020-04-09] MEDS: CEFTRIAXONE PMX 1GM/50ML 50 ML IV SCH (20:46)
[2020-04-09] MEDS: QUETIAPINE 25MG TABLET PO SCH (20:47)
[2020-04-09] MEDS ORDERED: DOCUSATE 100 MG CAPSULE PO ONE (22:00)
[2020-04-10 00:58] VITALS: BP 109/72
[2020-04-10] MEDS: METRONIDAZOLE PMX 500MG/100ML 100 ML IV SCH (02:56)
[2020-04-10] MEDS: ACETAMINOPHEN 325 MG TABLET PO PRN (05:24)
[2020-04-10] MEDS: PANTOPRAZOLE 40MG TABLET PO SCH (05:24)
[2020-04-10 05:39] LABS: ALBUMIN 3.1 g/dL (3.4-5.0); ANION GAP 6 mmol/L (5-15); CALCIUM 8.7 mg/dL (8.5-10.1); CHLORIDE 111 mmol/L (98-107)
[2020-04-10 05:41] LABS: BASOPHILS % (AUTO) 1 % (0-1); EOSINOPHILS % (AUTO) 6 % (1-7); LYMPHOCYTES % (AUTO) 31 % (22-44); MEAN CORPUSCULAR HEMOGLOBIN 27.6 pg (27.0-34.8); MEAN CORPUSCULAR HGB CONC 32.9 g/dL (32.4-35.8); MEAN PLATELET VOLUME 7.8 fL (7.4-10.4); MONOCYTES % (AUTO) 6 % (2-9); NEUTROPHILS % (AUTO) 56 % (42-75); PLATELET COUNT 421 x10^3/uL (130-400); RED BLOOD COUNT 4.38 x10^6/uL (3.82-5.3); RED CELL DISTRIBUTION WIDTH 13.9 % (9.6-15.2)
[2020-04-10 05:43] LABS: ALANINE AMINOTRANSFERASE 48 U/L (12-78); ALKALINE PHOSPHATASE 80 U/L (45-117); BILIRUBIN,TOTAL 0.4 mg/dL (0.2-1.0); CREATININE 0.65 mg/dL (0.55-1.02)
[2020-04-10 06:08] LABS: MD NO
[2020-04-10] MEDS ORDERED: DOCUSATE 100 MG CAPSULE PO PRN (07:00)
[2020-04-10 07:11] VITALS: BP 122/83
[2020-04-10] MEDS: PRENATAL VIT/IRON/FA 1 EACH TABLET PO SCH (08:21)
[2020-04-10] MEDS: SUCRALFATE 1 GM/10 ML UDC PO SCH ×3 (08:21→16:00)
[2020-04-10] MEDS: FLUOXETINE 10 MG CAP PO SCH (08:21)
[2020-04-10] MEDS: CHOLECALCIFEROL 5,000u TAB PO SCH (08:22)
[2020-04-10] MEDS: SODIUM CHLORIDE FLUSH 10ML SYR IVF SCH (08:23)
[2020-04-10] MEDS: LORazepam 0.5MG TABLET PO PRN (10:43)
[2020-04-10] MEDS ORDERED: metroNIDAZOLE 500 MG TABLET PO SCH (11:00)
[2020-04-10 13:52] VITALS: BP 120/82
[2020-04-10] MEDS ORDERED: FLUO10CA14 PO (15:30)
[2020-04-10] MEDS ORDERED: METR500T PO (15:30)
[2020-04-10] MEDS ORDERED: LORA-445 PO (15:30)
[2020-04-10] MEDS ORDERED: QUET25TA7 PO (15:30)
[2020-04-10] MEDS ORDERED: OMEP-110 PO (15:30)
[2020-04-10] MEDS ORDERED: SUCR1ORA5 PO (15:30)
[2020-04-10] MEDS ORDERED: CEFD300C37 PO (15:30)
[2020-04-10] MEDS ORDERED: CEFDINIR 300 MG CAPSULE PO SCH (21:00)
== END 2020-04-10 18:50 | disposition home or self-care (01) | DRG 776 ==
LOC: ED 19:32 → EDIP 19:44 → 3N 21:30
PROVIDERS: ADMIT Family Medicine; ATTEND Family Medicine
DX: O90.89 Other complications of the puerperium, not elsewhere classified (principal); K57.32 Diverticulitis of large intestine without perforation or abscess without bleeding; D47.3 Essential (hemorrhagic) thrombocythemia; O99.345 Other mental disorders complicating the puerperium; F53.0 Postpartum depression; O72.3 Postpartum coagulation defects; Z88.7 Allergy status to serum and vaccine
CPT/HCPCS: 36415; 74177; 80048; 80053; 81001; 82962; 85025; 87040; 87086; 96361; 96374; 96375; G0378; J0696; J2405; Q0162; Q9967; J2270; J7030

== ENCOUNTER 2020-06-04 08:55 | Emergency (ER) | payer OTHER ==
[~2020-06-04] VITALS: Ht 162.6 cm; Wt 87.8 kg
[~2020-06-04 08:55] MED LIST changes: +CEFD300C37 PO; +FLUO10CA15 PO; +LORA-445 PO; +METR500T PO; +OMEP-110 PO; +QUET25TA7 PO; +SUCR1ORA5 PO
--- NOTE | 2020-06-04 10:39 | NUR ---
PT TO ROOM FROM LOBBY
--- NOTE | 2020-06-04 11:15 | NUR ---
PT IS COMPLAINING OF HEADACHE THAT FEELS LIKE "THERE IS FLUID IN HER HEAD AND SHE CAN FEEL HER BRAIN MOVING AROUND" SHE IS ALSO COMPLAINING OF GENERALIZED PAIN AND PAIN WHEN SHE IS PUMPING BREASTMILK THAT IS NEW. SHE APPEARS TO BE IN MILD DISTRESS. SHE IS 3 MONTHS POST AND BABY WAS JUST DISCHARGED FROM NICU. DENIES COUGH OR SHORTNESS OF BREATH. NO FAMILY AT BEDSIDE. CYCLING VITALS WITH CONTINUOUS SPO2 MONITORING. CALL LIGHT WITHIN REACH.
--- NOTE | 2020-06-04 11:27 | NUR ---
PROVIDER AT BEDSIDE
[2020-06-04 11:54] LABS: BASOPHILS % (AUTO) 0 % (0-1); EOSINOPHILS % (AUTO) 0 % (1-7); LYMPHOCYTES % (AUTO) 6 % (22-44); MEAN CORPUSCULAR HEMOGLOBIN 27.4 pg (27.0-34.8); MEAN CORPUSCULAR HGB CONC 33.1 g/dL (32.4-35.8); MONOCYTES % (AUTO) 7 % (2-9); NEUTROPHILS % (AUTO) 88 % (42-75); PLATELET COUNT 354 x10^3/uL (130-400); RED CELL DISTRIBUTION WIDTH 15.9 % (9.6-15.2)
[2020-06-04] MEDS ORDERED: ONDANSETRON 2MG/ML, 2ML ONE (11:59)
[2020-06-04] MEDS ORDERED: KETOROLAC 30 MG/1 ML ONE (11:59)
[2020-06-04] MEDS ORDERED: ACETAMINOPHEN 500 MG TABLET ONE (12:00)
[2020-06-04] MEDS ORDERED: ACETAMINOPHEN 500 MG TABLET PO ONE (12:00)
[2020-06-04] MEDS ORDERED: ONDANSETRON 2MG/ML, 2ML IVPush ONE (12:00)
[2020-06-04] MEDS ORDERED: KETOROLAC 30 MG/1 ML IVPush ONE (12:00)
[2020-06-04] MEDS ORDERED: SODIUM CHLORIDE 0.9% 1,000ML IVBOLUS ONE (12:00)
[2020-06-04 12:06] LABS: CALCIUM 8.8 mg/dL (8.5-10.1); CHLORIDE 105 mmol/L (98-107)
[2020-06-04 12:15] LABS: ALANINE AMINOTRANSFERASE 38 U/L (12-78); ALBUMIN 3.7 g/dL (3.4-5.0); ALKALINE PHOSPHATASE 97 U/L (45-117); ANION GAP 8 mmol/L (5-15); BILIRUBIN,TOTAL 1.4 mg/dL (0.2-1.0); CREATININE 0.73 mg/dL (0.55-1.02); TOTAL PROTEIN 8.3 g/dL (6.4-8.2)
[2020-06-04 12:38] LABS: MD SCAN
--- NOTE | 2020-06-04 13:04 | NUR ---
PATIENT NOTES PAIN IS DOWN TO 4/10 AND IS RESTING COMFORTABLY. CALL LIGHT WITHIN REACH
[2020-06-04] MEDS ORDERED: AZITHROMYCIN 500 MG in SODIUM CHLORIDE 0.9% 250 ML IV ONE (14:00)
[2020-06-04] MEDS ORDERED: CEFTRIAXONE PMX 1GM/50ML 50 ML IV ONE (14:00)
[2020-06-04] MEDS ORDERED: CEFTRIAXONE PMX 1GM/50ML 50 ML ONE (14:32)
[2020-06-04 16:13] VITALS: BP 112/64
--- NOTE | 2020-06-04 16:41 | NUR ---
Patient/Caregiver given discharge instructions and they have confirmed that they understand the instructions. Patient ambulatory with steady gait.
== END 2020-06-04 16:43 | disposition home or self-care (01) ==
LOC: ED 13:01
DX: J12.9 Viral pneumonia, unspecified (principal); Z20.828 Contact with and (suspected) exposure to other viral communicable diseases; D72.829 Elevated white blood cell count, unspecified; R11.0 Nausea
CPT/HCPCS: 36415; 71045; 76830; 80053; 83605; 84145; 84703; 85025; 87040; 87081; 87880; 96361; 96374; 96375; 99285; J0456; J0696; J1885; J2405; J7030; J7050; U0003